=== PATIENT | male | born 1980 | race Caucasian/White ===

== ENCOUNTER 2019-04-11 15:57 | Emergency (ER) | payer OTHER, SELFPAY ==
[2019-04-11 16:02] VITALS: BP 173/101; PULSE 97; RESP 20; TEMP 37.1; O2SAT 99
--- NOTE | 2019-04-11 16:14 | ED.ANIMALBIT ---
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 He states he was returning a dog to home when a ?not so nice dog grabbed onto my left leg. Patient states he pushed the dog away with his leg who immediately let go. The patient states the dog was last seen at the vet in 2014, and last rabies vaccine was 2018. Patient denies any numbness, tingling, significant pain, difficulty moving the leg, fevers, chills, nausea, vomiting, diarrhea, or other concerns. Review of Systems <ANICETO Barr - Last Filed: 04/11/19 21:14> Review of Systems Narrative: REVIEW OF SYSTEMS: GENERAL: Denies fever or chills. HENT: Denies head trauma. EYE: Denies double vision or vision loss. CARDIOVASCULAR: Denies syncope. MUSCULOSKELETAL: Denies weakness, or deformities. INTEGUMENTARY: Complains dog bite, no bleeding, see HPI. NEURO: Denies numbness or tingling. Patient History <ANICETO Barr - Last Filed: 04/11/19 21:14> Medical History No significant medical problems (Acute) Social History Smoking Status: Never smoker Smoking Status: Never smoker Exam <ANICETO Barr - Last Filed: 04/11/19 21:14> Initial Vital Signs Initial Vital Signs: Vital Signs Temperature 98.7 F 04/11/19 16:02 Pulse Rate 97 H 04/11/19 16:02 Respiratory Rate 20 04/11/19 16:02 Blood Pressure 173/101 H 04/11/19 16:02 Pulse Oximetry 99 04/11/19 16:02 PHYSICAL EXAMINATION: GENERAL: Well groomed, alert, and cooperative. Answers questions promptly and appropriately. Vital signs noted. HENT: Normocephalic, atraumatic. RESPIRATORY: Normal respiratory rate, trachea midline, airway patent. No stridor, nasal flaring or accessory muscle use. MUSCULOSKELETAL: Normal gait and coordination. Equal tone and mass bilaterally. EXTREMITIES: CMS intact. Moves all extremities. SKIN: Warm, dry, soft, appropriate color for ethnicity. Four <1cm abrasions noted to lateral aspect of left calf, no bleeding, no exudate. Surrounding ecchymosis noted to all abrasions approximately 1-2 cm in diameter. Patient has full range of motion of knee and ankle, no calf tenderness with palpation. Wound was washed, bacitracin applied, and patient was educated about infection. NEURO: Alert and Oriented X 3. Good coordination. PSYCH: Appropriate affect and mood. <Seamus Lindo DO - Last Filed: 04/12/19 18:31> Initial Vital Signs Initial Vital Signs: Vital Signs Temperature 98.7 F 04/11/19 16:02 Pulse Rate 97 H 04/11/19 16:02 Respiratory Rate 20 04/11/19 16:02 Blood Pressure 173/101 H 04/11/19 16:02 Pulse Oximetry 99 04/11/19 16:02 Course <ANICETO Barr - Last Filed: 04/11/19 21:14> Course Course Narrative: Wound was washed, bacitracin applied, and patient was educated about infection. Tdap was updated has patient states he had a Tdap approximately 5 years ago reverser take. We discussed rabies vaccination, we also discussed that the situation was low risk due to recent animal rabies vaccination reported in 2018, the animal will be quarantined, and the patient was a bit through his pants. Patient declined repeat vaccination at this time. Orders Ordered: Discontinued Medications Bacitracin (Bacitracin) 1 applic TOP NOW ONE Stop: 04/11/19 16:14 Last Admin: 04/11/19 16:22 Dose: 1 applic Documented by: RIOS Diphtheria/Tetanus/Acell Pertussis (Adacel) 0.5 ml IM .ONCE ONE Stop: 04/11/19 16:14 Last Admin: 04/11/19 16:21 Dose: 0.5 ml Documented by: RIOS Vital Signs Vital signs: Vital Signs - 8 hr 04/11/19 16:02 Temperature 98.7 F Pulse Rate [Right] 97 H Respiratory Rate 20 Blood Pressure [Left Arm] 173/101 H Pulse Oximetry 99 <Seamus DO [place] - Last Filed: 04/12/19 18:31> Orders Ordered: Discontinued Medications Bacitracin (Bacitracin) 1 applic TOP NOW ONE Stop: 04/11/19 16:14 Last Admin: 04/11/19 16:22 Dose: 1 applic Documented by: RIOS Diphtheria/Tetanus/Acell Pertussis (Adacel) 0.5 ml IM .ONCE ONE Stop: 04/11/19 16:14 Last Admin: 04/11/19 16:21 Dose: 0.5 ml Documented by: RIOS Vital Signs Vital signs: Vital Signs - 8 hr 04/11/19 16:02 Temperature 98.7 F Pulse Rate [Right] 97 H Respiratory Rate 20 Blood Pressure [Left Arm] 173/101 H Pulse Oximetry 99 MDM - Animal Bite <Viviana ANICETO Leija - Last Filed: 04/11/19 21:14> Medical Records Attestation: I reviewed the patient's medical records. Lab Data Attestation: I reviewed the patient's lab results. [facility] Narrative Medical decision making narrative: 38yo male presenting to the emergency department for a dog bite. Dogs last rabies vaccination according to the records with 2018. But appears to be mainly abraded versus a puncture wound, this occurred through the pants. Patient's Tdap was updated. We discussed option for rabies vaccination series, patient decided to wait at this time due to low risk. This is a low risk situation for rabies as the dog was recently vaccinated in 2018, the dog is not a stray, no puncture wound, by occurred through pants. No concern for infection due to wound appearing as abrasion, no exudate, or erythema. Wound was washed extensively and past just was applied. Patient was given very strict ED return precautions for signs of infection and or if any changes occur to the dog during quarantine. Patient agreed to plan of care verbalized understanding. Discharge Plan Departure Patient Disposition: Home Clinical Impression: Dog bite Qualifiers: Encounter type: initial encounter Qualified Code(s): W54.0XXA - Bitten by dog, initial encounter Discharge Date/Time: 04/11/19 16:40 Instructions: DI for Dog Bite Activity Restrictions/Additional Instructions: Thank you for entrusting me with your care today. As discussed, your Tdap has been updated. This dog bite is at low risk for rabies and infection due to recent vaccination of the animal in 2018 and the nature of the bite that occurred today through your pants. Please keep the area clean, you may apply bacitracin or Neosporin to the area 1 to 2 times a day. Wash the area with soap and water daily. Return emergency department if you develop signs of infection such as increased redness, severe pain, pus, difficulty moving your foot or knee, and/or if the animal shows signs of developing rabies while in quarantine. <Seamus Lindo, DO - Last Filed: 04/12/19 18:31> Sign Out Provider Sign Out Attestation: Dr Lindo Co-Sign Statement: I was available for consultation during this patient's emergency department visit. This chart is signed by myself for administrative purposes only. I did not have direct contact with this patient during this visit. They were seen independently by the APC.
[2019-04-11] MEDS: TET,DIPH,PERTUSS(ACELL),VAC/PF 0.5 ML SYRINGE IM (16:21)
[2019-04-11] MEDS: BACITRACIN OINT 0.9 GM PCKT 1 APPLIC TOP (16:22)
== END 2019-04-11 16:40 | disposition home or self-care (01) ==
PROVIDERS: Emergency Provider Nurse Practitioner
DX: S81.852A Open bite, left lower leg, initial encounter (principal); W54.0XXA Bitten by dog, initial encounter; Z23 Encounter for immunization; Y99.0 Civilian activity done for income or pay
CPT/HCPCS: 90471; 99283; 90715

== ENCOUNTER → 2020-01-06 13:59 | Outpatient (CLI) | payer OTHER, SELFPAY ==
[2020-01-06 14:54] LABS: COVID19 -Nasal RAPID Negative (Negative)
== END ==
PROVIDERS: PCP Nurse Practitioner Family; Visit Provider Physician Assistant
DX: Z11.59 Encounter for screening for other viral diseases (principal)
CPT/HCPCS: 87635

== ENCOUNTER → 2021-05-07 14:50 | Outpatient (CLI) | payer OTHER, SELFPAY ==
[2021-05-07 16:40] LABS: Free T4, Direct Thyroxine 1.33 ng/dL (0.78-2.19)
[2021-05-07 16:54] LABS: Thyroid Stimulating Hormone 2.14 uIU/mL (0.47-4.68)
== END ==
PROVIDERS: PCP Nurse Practitioner Family; Referring Provider Nurse Practitioner Family; Visit Provider Nurse Practitioner Family
DX: R79.89 Other specified abnormal findings of blood chemistry (principal)
CPT/HCPCS: 36415; 84439; 84443

== ENCOUNTER 2023-01-24 07:18 | Emergency (ER) | payer OTHER, SELFPAY ==
[2023-01-24 07:25] VITALS: BP 161/100; PULSE 78; RESP 16; TEMP 36.4; O2SAT 99; BMI 25.0
--- NOTE | 2023-01-24 07:29 | ED.GENADULT ---
HPI - General Adult General Chief complaint: Upper Respiratory Symptoms Stated complaint: strep throat Time Seen by Provider: 01/24/23 07:19 Source: patient Mode of arrival: Ambulatory Limitations: no limitations History of Present Illness HPI narrative: 42-year-old male who is here for evaluation of approximately 24 hours of a sore throat. He states his daughter was diagnosed with sore throat and is currently on antibiotics. No fevers. Fairly minor symptoms per his report. No skin rashes. No nausea or vomiting. Related Data Previous Rx's Medication Instructions Recorded penicillin V potassium 500 mg 500 mg PO BID 10 days #20 tabs 01/24/23 tablet Review of Systems Constitutional Constitutional: Reports system reviewed and no additional complaints, except as documented ENT Ears, Nose, Mouth, and Throat: Reports system reviewed and no additional complaints, except as documented Integumentary/Breasts Skin/Breast: Reports system reviewed and no additional complaints, except as documented Neurologic Neurologic: Reports system reviewed and no additional complaints, except as documented Allergic/Immunologic Allergic/Immunologic: Reports system reviewed and no additional complaints, except as documented Patient History Medical History (Updated 01/24/23 @ 07:40 by Seamus Lindo DO) No significant medical problems Social History Smoking Status: Never smoker Smoking Status: Never smoker Exam Initial Vital Signs Initial Vital Signs: Vital Signs Temperature 97.5 F L 01/24/23 07:25 Pulse Rate 78 01/24/23 07:25 Respiratory Rate 16 01/24/23 07:25 Blood Pressure 161/100 H 01/24/23 07:25 Pulse Oximetry 99 01/24/23 07:25 Oxygen Delivery Method Room Air 01/24/23 07:25 Const General: comfortable HENMT Mouth: moist mucous membranes Throat: uvula midline and posterior oropharynx abnormal erythema and exudates Neck Lymphatic: No lymphadenopathy Resp Effort & Inspection: normal respiratory effort Skin General: no rashes or lesions noted Neuro General: patient alert, patient awake, patient oriented x3 and moves all extremities Extrem General: normal to inspection and capillary refill normal Course Orders Ordered: ED Orders 01/24/23 07:21 Strep Grp A by PCR Rapid Stat 01/24/23 07:25 Throat Culture Stat Vital Signs Vital signs: Vital Signs - 8 hr 01/24/23 07:25 Temperature 97.5 F L Pulse Rate 78 Respiratory Rate 16 Blood Pressure 161/100 H Pulse Oximetry 99 Oxygen Delivery Method Room Air Medical Decision Making Lab Data Labs: Lab Results 01/24/23 Range/Units 07:21 Group A Strep (PCR) Negative (Negative) MDM Narrative Medical decision making narrative: Patient has no cough, lymphadenopathy an exudates. No fevers. His rapid strep was negative. A throat culture is pending. Given his presentation and his exposure to strep throat with his daughter I have a high suspicion that that is what is going on. We discussed options to include presumptively treating with antibiotics versus waiting for the culture to result. Patient would like to be treated with antibiotics. We discussed options to include IM Bicillin and also p.o. antibiotics. The patient opted for p.o.. No respiratory distress. Tolerating fluids. Will discharge patient home with return precautions. He expressed understanding and agreement. Discharge Plan Departure Patient Disposition: Home Clinical Impression: Acute streptococcal pharyngitis Instructions: DI for Strep Throat Activity Restrictions/Additional Instructions: You can take Tylenol/ibuprofen for any discomfort. Be sure that you were increasing your fluid intake. A prescription for antibiotics was sent to [facility]. Please take them as directed. Return to the emergency department for new or worsening symptoms. Prescriptions: New penicillin V potassium 500 mg tablet 500 mg PO BID 10 Days Qty: 20 0RF Referrals: Toma Casarez ARNP [Primary Care Provider] - Stand Alone Forms: Patient Portal/API
[2023-01-24 07:34] LABS: Strep Grp A by PCR Rapid Negative (Negative)
== END 2023-01-24 07:47 | disposition home or self-care (01) ==
PROVIDERS: Emergency Provider Emergency Medicine; PCP Nurse Practitioner Family
DX: J02.0 Streptococcal pharyngitis (principal)
CPT/HCPCS: 87070; 87651; 99281; 99283